=== PATIENT | male | born 1950 | race Caucasian/White ===

== ENCOUNTER 2024-09-08 11:39 | Emergency (ER) | payer MEDICARE, MEDICAID, SELFPAY ==
--- NOTE | 2024-09-08 11:41 | XR_ITS ---
Examination: Abdominal series 3 views including upright PA chest TECHNIQUE: Upright PA chest AP upright AP supine abdomen total 3 views Exam date and time: September 08, 2024 1404 hours INDICATIONS: Low center abdomen pain beginning one month ago. FINDINGS: Extensive parenchymal disease both lungs including masslike area in the left upper lobe 5.8 cm Mild enlargement cardiac contour Nonobstructive bowel gas pattern No free air No abnormal calcific densities Lumbar dextroscoliosis 20 degrees IMPRESSION: Extensive parenchymal disease both lungs including masslike area in the left upper lobe 5.8 cm, consider CT chest without contrast follow-up to exclude pulmonary neoplasm
--- NOTE | 2024-09-08 11:41 | PD.EDADULT ---
ED General RME/HPI General Chief complaint: Abdominal Pain Stated complaint: ABDOMINAL CRAMPING Time Seen by Provider: 09/08/24 11:40 Arrival date/time: 09/08/24 11:39 CC: Low center abdominal pain HPI ongoing for 1 month, denies loss of appetite weight loss constipation diarrhea painful urine bloody urination nausea vomiting back pain chest pain shortness of breath. Patient states he has a good appetite and continues to eat. Patient states after initial onset a month ago he went to [facility] for the same complaint said he was told nothing but discharged home. Related Data Allergies Allergy/AdvReac Type Severity Reaction Status Date / Time No Known Allergies Allergy Verified 09/08/24 11:56 Review of Systems Review of Systems Narrative Review of Systems: GEN: No fever, no chills, no weight loss EYES: No discharge, no visual changes, no pain HEENT: No ear pain, no congestion, no sore throat PULM: No shortness of breath, no cough, no congestion CV: No chest pain, no dyspnea on exertion, no palpitations GI: No nausea, no vomiting, no diarrhea, + pain, no constipation : No frequency, no urgency, no dysuria MUSC/SKEL: No joint pain, no back pain SKIN: No rash PSYCH: No hallucinations, no depression HEME/LYMPH: No easy bleeding or bruising tendencies NEURO: No weakness, no headache ED Exam Narrative Physical exam: [General: Obese not in cot no acute distress Head normocephalic HEENT: Within acceptable limits Neck is supple nontender Chest equal chest rise nontender to palpation Respiratory: Clear to auscultation no wheezes crackles or rubs CV: Rate rhythm is regular no murmurs rubs or clicks Abdomen is soft nontender no masses positive bowel sounds all 4 quadrants Back: No CVA tenderness no spinous process tenderness from cervical spine thoracic and lumbar spine Skin: Intact no petechiae rash induration ulceration or crepitus Extremities: Moving all extremity against resistance cap refill less than 2 seconds neurosensory intact Neuro: Awake alert oriented x3 Glascow coma 15 no focal deficits] Course Quality Measures none Orders Category Date Time Status CT chest wo con Stat Exams 09/08/24 15:23 Completed XR abdomen series w chest 1V Stat Exams 09/08/24 11:41 Completed CBC Stat Lab 09/08/24 11:58 Completed CMP [Comprehensive Metabolic Panel] Stat Lab 09/08/24 11:58 Completed Lipase Stat Lab 09/08/24 11:58 Completed Urinalysis, C/S if Indicated Stat Lab 09/08/24 13:07 Completed Vital Signs Vital signs: Vital Signs Temperature 98.9 F 09/08/24 11:43 Pulse Rate 112 H 09/08/24 11:43 Respiratory Rate 19 09/08/24 11:43 Blood Pressure 140/104 H 09/08/24 11:43 Pulse Oximetry (%) 99 09/08/24 11:43 Oxygen Delivery Method Room Air 09/08/24 11:43 MDM Patient data External records reviewed:: [facility] previous records and EMS form Clinical information provided by:: patient and EMS Social determinants that could affect healthcare access:: none Patient has the following chronic illnesses:: A-fib hypertension diabetes pulmonary hypertension nicotine dependence alcohol abuse chronic abdominal pain review the records received show that the patient is supposedly supposed to be on diabetes medicine and blood thinner however the patient states he do not take it . How is presenting disease/condition affected by chronic disease/condition?: uneffected by Evaluation data The following diagnostics were reviewed and interpreted by me:: lab results and radiology exam(s) Lab and/or radiology exams considered but not ordered:: CBC shows no acute leukocytosis anemia thrombocytopenia CMP shows no acute electrolyte imbalances renal impairment transaminitis or T. bili elevation X-ray of the abdomen three-way shows parenchymal scarring with a possible lesion in the lungs requested CT is interpreted by the radiologist CT of the chest shows parenchymal scarring but no cavitated lesion or mass. Interpretation Summary: Patient informed there is no acute finding we will discharge the patient home. Medications Medications considered but not ordered:: None none Medication administrations:: None Consultations Consultation(s) initiated? (list below): No Diagnosis Differential Diagnosis ED Complaint MDM: Ileus obstruction SBO Most likely diagnosis given after review of the tests above:: Abdominal pain chronic Admission Indicated Admission indicated?: not indicated Explain why admission is indicated or not indicated:: Stable for outpatient follow-up Admission Request Was there a request for admission?: No Disposition Plan Disposition Plan: Discharge Discharge Attestation Discharge Attestation: The patient and all family members were given an opportunity to ask questions and understood the discharge instructions. Discharge instructions specifically effects, indications for sooner follow up or return to the emergency department, and the expected course of current diagnosis. Patient condition: Stable Medical Decision Making Differential Diagnosis Differential Diagnosis: Ileus obstruction SBO Lab Data 09/08/24 11:58 09/08/24 11:58 Labs: Lab Results 09/08/24 09/08/24 Range/Units 11:58 13:07 WBC 5.7 (3.8-10.6) Thou/mm3 RBC 4.87 (4.50-5.90) Miln/mm3 Hgb 14.4 (13.5-16.0) g/dL Hct 43.1 (41.0-53.0) % MCV 89 (80-100) fL MCH 29.6 (25.0-35.0) pg MCHC 33.4 (31.0-37.0) g/dl RDW Std Deviation 43.8 (35.1-43.9) fL Plt Count 217 (140-440) Thou/mm3 Neut % (Auto) 45 (37-80) % Lymph % (Auto) 40 (10-50) % Carter % (Auto) 11 (0-12) % Eos % (Auto) 3 (0-10) % Baso % (Auto) 1 (0-2.5) % Neut # (Auto) 2.6 (1.8-7.7) Thou/mm3 Lymph # (Auto) 2.3 (1.0-4.8) Thou/mm3 Carter # (Auto) 0.6 (0.0-0.8) Thou/mm3 Eos # (Auto) 0.2 (0.0-0.5) Thou/mm3 Baso # (Auto) 0.0 (0.0-0.2) Thou/mm3 Immature Gran # (Auto) 0.03 H (0.00-0.00) Thou/mm3 Absolute Nucleated RBC 0.00 (0.00-0.00) Thou/mm3 Immature Gran % 1 H (0-0) % Nucleated RBC % 0 (0) /100 WBC Sodium 137 (136-145) mMol/L Potassium 3.9 (3.4-5.1) mMol/L Chloride 103 (98-107) mMol/L Carbon Dioxide 24.1 (20.0-31.0) mMol/L Anion Gap 10 (7-16) BUN 21 (9-23) mg/dL Creatinine 1.0 (0.6-1.3) mg/dL Estim Creat Clear Calc 70.1 (>60) mL/min eGFR > 60 (60 - ) See Note BUN/Creatinine Ratio 21 H (12-20) Ratio Glucose 293 H (74-106) mg/dL Calculated Osmolality 287 (275-295) Calcium 9.5 (8.3-10.6) mg/dL Corrected Calcium 9.7 (8.5-10.1) mg/dL Total Bilirubin 0.8 (0.3-1.2) mg/dL AST 124 H (0-34) U/L ALT 192 H (10-49) U/L Alkaline Phosphatase 107 (46-116) U/L Total Protein 7.3 (5.7-8.2) gm/dL Albumin 3.8 (3.4-4.8) gm/dL Globulin 3.5 (2.3-3.5) gm/dL Albumin/Globulin Ratio 1.1 L (1.2-2.2) Lipase 24 (12-53) U/L Ur Collection Type Clean Catch Urine Color Yellow (Lt Yel-Yel) Urine Clarity Clear (Clear/Hazy) Urine pH 6.0 (5.0-7.0) Ur Specific [place] 1.020 (1.001-1.035) Urine Protein 1+ A (Neg - Trace) Urine Glucose (UA) 1+ A (Negative) Urine Ketones Negative (Negative) Urine Blood Negative (Negative) Urine Nitrite Negative (Negative) Urine Bilirubin Negative (Negative) Urine Urobilinogen (Auto) 2.0 (0.0-1.0) mg/dL Ur Leukocyte Esterase Negative (Negative) Urine RBC 0 (0-3) /hpf Urine WBC < 1 (0-5) /hpf Ur Squamous Epith Cells < 1 (0-5) /hpf Urine Bacteria None (None) Ur Culture Indicated? Not Indicated Discharge Plan Plan Patient Disposition: HOME (Self Care) Prescriptions/Referrals Referrals: Ronnie Breaux MD [Primary Care Provider] - In 1 week Problem List Clinical Impression: Abdominal pain, chronic, generalized Patient/Caregiver Discharge Instructions Education Materials: Abdominal Pain Additional Instructions: Follow-up with your primary care provider this is your second time complaining of chronic abdominal pain today there is no acute finding. Print Language: German Stand Alone Forms: Sharyn Award Info., Patient Portal Info Letter PA/[employer] Supervising Physician PA/[employer] Supervising Physician: Ana Hughes ENP
[2024-09-08 11:43] VITALS: BP 140/104; PULSE 112; RESP 19; TEMP 37.2; O2SAT 99
[2024-09-08 11:44] VITALS: BMI 27.1
[2024-09-08 11:49] VITALS: PULSE 89; RESP 16; O2SAT 97
[2024-09-08 12:02] LABS: Basophils % (Auto) 1 % (0-2.5); Eosinophils # (Auto) 0.2 Thou/mm3 (0.0-0.5); Eosinophils % (Auto) 3 % (0-10); Hematocrit 43.1 % (41.0-53.0); Hemoglobin 14.4 g/dL (13.5-16.0); Immature Granulocytes % (Auto) 1 % (0-0); Immature Granulocytes Auto 0.03 Thou/mm3 (0.00-0.00); Lymphocytes # (Auto) 2.3 Thou/mm3 (1.0-4.8); Lymphocytes % (Auto) 40 % (10-50); Mean Corpuscular HGB Conc 33.4 g/dl (31.0-37.0); Mean Corpuscular Hemoglobin 29.6 pg (25.0-35.0); Mean Corpuscular Volume 89 fL (80-100); Monocytes # (Auto) 0.6 Thou/mm3 (0.0-0.8); Monocytes % (Auto) 11 % (0-12); Neutrophils # (Auto) 2.6 Thou/mm3 (1.8-7.7); Neutrophils % (Auto) 45 % (37-80); Nucleated Red Blood Cell % 0 /100 WBC (0); Platelet Count 217 Thou/mm3 (140-440); RDW Standard Deviation 43.8 fL (35.1-43.9); Red Blood Count 4.87 Miln/mm3 (4.50-5.90); White Blood Count 5.7 Thou/mm3 (3.8-10.6)
[2024-09-08 12:03] VITALS: BP 118/83; PULSE 101; TEMP 36.6; O2SAT 98
[2024-09-08 12:20] LABS: Alanine Aminotransferase 192 U/L (10-49); Albumin, Serum 3.8 gm/dL (3.4-4.8); Albumin/Globulin Ratio 1.1 (1.2-2.2); Alkaline Phosphatase 107 U/L (46-116); Anion Gap 10 (7-16); Aspartate Amino Transferase 124 U/L (0-34); BUN/Creatinine Ratio 21 Ratio (12-20); Bilirubin,Total 0.8 mg/dL (0.3-1.2); Blood Urea Nitrogen 21 mg/dL (9-23); Calcium 9.5 mg/dL (8.3-10.6); Calcium (Corrected) 9.7 mg/dL (8.5-10.1); Carbon Dioxide 24.1 mMol/L (20.0-31.0); Chloride 103 mMol/L (98-107); Estimated Creatinine Clearance 70.1 mL/min (>60); Globulin 3.5 gm/dL (2.3-3.5); Glucose 293 mg/dL (74-106); Lipase 24 U/L (12-53); Osmolality,Calculated 287 (275-295); Potassium 3.9 mMol/L (3.4-5.1); Sodium 137 mMol/L (136-145); Total Protein 7.3 gm/dL (5.7-8.2); eGFR > 60 See Note
[2024-09-08 13:11] LABS: Collection Type, Urine Clean Catch; RBC,Urine 0 /hpf (0-3)
[2024-09-08 13:47] LABS: Bilirubin,Urine Negative (Negative); Blood,Urine Negative (Negative); Clarity,Urine Clear (Clear/Hazy); Color,Urine Yellow (Lt Yel-Yel); Culture Indicated,Urine Not Indicated; Glucose, Urine 1+ (Negative); Ketones,Urine Negative (Negative); Leukocyte Esterase,Urine Negative (Negative); Nitrite,Urine Negative (Negative); Protein,Urine 1+ (Neg - Trace); Squamous Epithelial Cell,Urine < 1 /hpf (0-5); WBC,Urine < 1 /hpf (0-5)
[2024-09-08 14:40] VITALS: BP 122/100; PULSE 98; RESP 20; TEMP 36.6; O2SAT 95
--- NOTE | 2024-09-08 15:23 | XR_ITS ---
Examination: CT chest, without intravenous contrast. Sagittal and coronal 2-D reconstructions. Exam date and time: September 08, 2024 1643 hrs. Indications: Onset chest pain today, extensive parenchymal disease on chest film today CTDI:vol (mGy) 10.4 DLP: (mGycm) 436 Technique: Multiple 3.0 mm axial sections of the chest to been obtained. Bone and lung density settings are obtained. Sagittal and coronal 2-D reconstructions have been obtained. Low dose protocols were performed. One or more of the following dose reduction techniques were used; automated exposure control, adjustment of the mA and/or KV according to patient size, use of iterative reconstruction technique. Findings: AP dimension ascending thoracic aorta 3.9 cm Main pulmonary artery segment 36 mm No paratracheal tracheobronchial or bronchopulmonary adenopathy Extensive bilateral parenchymal disease, all of which may represent pneumonia Minimal bilateral pleural disease Heavy calcification left anterior descending left circumflex coronary arteries Mild enlargement cardiac contour Liver irregular in contour, no gallstones noted Spleen not enlarged No pancreatic or adrenal mass 1 mm upper pole left renal calculus Impression: Pulmonary artery hypertension pattern Extensive bilateral parenchymal disease all of which may represent pneumonia, follow-up chest imaging is needed to document clearing post therapy Suspect primary hepatocellular disease 1 mm nonobstructing left renal calculus
[2024-09-08 16:30] VITALS: BP 143/118; PULSE 94; RESP 17; O2SAT 99
--- NOTE | 2024-09-08 18:12 | PC.CC ---
Addendum entered by Terrance Skinner II 09/08/24 18:20: 1818-Call from [facility], transport ETA set for 1929. Original Note: [employer] CC engaged to arrange transport for pt back to [facility]. 1745-Call to [facility], speaking with pts LIBRADO Ojeda. Per Lynette transport no longer available. Request report to be called. 1749-Call to [facility], transport arranged for ainsley. Reference # [id number]. PCS and face sheet completed. Both faxed to [facility] and uploaded to [employer]. Pending Transport ETA at this time.
[2024-09-08 18:40] VITALS: BP 145/106; PULSE 106; RESP 19; TEMP 36.7; O2SAT 98
--- NOTE | 2024-09-08 19:16 | PC.NURSE ---
CARMINA PEREZ CALLED AND REPORT GIVEN TO0 MICHAEL PAVON.
== END 2024-09-08 19:28 | disposition home or self-care (01) ==
PROVIDERS: Registered Nurse General Practice; Emergency Provider Emergency Medicine; PCP Family Medicine
DX: J98.4 Other disorders of lung (principal); R10.84 Generalized abdominal pain; G89.29 Other chronic pain
CPT/HCPCS: 36415; 71250; 74022; 80053; 81001; 83690; 85025; 99284